=== PATIENT | female | born 1990 | race Caucasian/White ===

== ENCOUNTER → 2018-01-01 | Outpatient (CLI) | payer OTHER ==
--- NOTE | 2018-01-01 18:39 | DIAGNOSTIC IMAGING REPORT ---
MRI OF THE LUMBAR SPINE WITHOUT CONTRAST CLINICAL HISTORY: Low back pain. Chronic right sacroiliac joint pain. COMPARISON STUDY: No previous studies for comparison. TECHNIQUE: Utilizing a 1.5 Margo magnet and dedicated coil, multiplanar, multiecho imaging of the lumbar spine was performed without IV contrast. FINDINGS: For purposes of numbering on this exam, the L5-S1 disc space is assigned to axial image 27 of 30. Alignment of the lumbar spine is anatomic. Vertebral body heights are maintained. There is no marrow edema or marrow replacement. There is no intracanalicular mass or fluid collection. Conus terminates at the upper L1 level. Paravertebral soft tissues are unremarkable with exception of a 9 mm T2 hyperintense focus lateral to the right L4-L5 facet which is of no clinical significance. L1-2: The central canal and neural foramen are patent. L2-3: The central canal and neural foramen are patent. L3-4: The central canal and neural foramen are patent. L4-5: Central canal and neural foramen are patent. L5-S1: There is a tiny central disc protrusion. Central canal neural foramen are patent. IMPRESSION: 1. Tiny central disc protrusion at L5-S1. Patent central canal and neural foramen. 2. Otherwise, unremarkable MRI of the lumbar spine. Electronically signed by: Jose Raul Jimenez M.D. 01/01/2018 6:38 PM Dictated Date/Time: 01/01/2018 6:29 PM
== END | disposition home or self-care (01) ==
LOC: C.MRI 17:38
PROVIDERS: ATTEND Family Medicine Sports Medicine
DX: M54.5 Low back pain (principal); M53.3 Sacrococcygeal disorders, not elsewhere classified